=== PATIENT | female | born 2000 ===

== ENCOUNTER 2024-05-19 15:51 | Inpatient (IN) | payer OTHER, SELFPAY ==
[2024-05-19 16:01] VITALS: BP 146/82; PULSE 104; O2SAT 99
--- NOTE | 2024-05-19 16:02 | ED.PSYCH ---
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 Laz Garcia HPI Narrative: 23-year-old female with a history of bipolar disorder takes duloxetine 60 mg once a day, has been compliant with the medications, brought to emergency department on a Section 12. The following was obtained from the Section 12: ?Student has not slept in 3 days, adriana, she reports feeling psychotic, was on campus screaming and threatening others. Diagnosis of bipolar disorder? Patient told me that she has too much stress in the Trauma his building up in his been pouring into her life. She states that over the last 3 days that has been too much and she was had very little asleep. She states that she lives [place] in [place] [facility] 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 She was very tearful while I was interviewing her. She states that she just needs to sleep but does not want any medications at this time to help. She denied suicidal ideation, self-harm or homicidal ideation. Related Data Home Medications ?Medication ?Instructions ?Recorded ?Confirmed duloxetine 60 mg capsule,delayed 60 mg PO DAILY 05/19/24 05/19/24 release Allergies Allergy/AdvReac Type Severity Reaction Status Date / Time No Known Allergies Allergy Verified 05/19/24 16:13 Review of Systems Review of Systems: Yes all other systems are reviewed and are negative REPLACED BY [facility] Past Medical History REPLACED BY [facility] Narrative: Social history: She states she was smoke cigarettes occasionally. She drinks alcohol once or twice a month and when she drinks she will drink 3-4 alcoholic beverages. She smokes marijuana joints daily. Social History Social History Alcohol intake: current Smoked in Last 30 Days: Yes Use of substances other than those prescribed or required for medical reasons: No Advance Directives: No Advance Directives Information Provided: No Patient : No Physical Exam Vital Signs: Vital Signs: Last Vital Signs Temp 98.6 F 05/20/24 06:28 Pulse 123 H 05/20/24 06:28 Resp 20 05/20/24 06:28 BP 150/83 H 05/20/24 06:28 Pulse Ox 100 05/20/24 06:28 O2 Del Method Room Air 05/20/24 06:28 BMI result Body Mass Index 19.4 Exam: General: Awake, alert , patient was crying during the interview, she does not appear to be in distress. Head: Normocephalic, atraumatic EENT: PERRL, Lids normal, sclera normal, conjunctiva normal, nose normal , ears normal, throat without erythema or exudates Neck: Supple, no adenopathy Lung: breath sounds symmetric, no wheezing, rales or rhonchi Chest: symmetric movement, nontender Heart: regular rate and rhythm, normal S1, S2 no murmurs or rubs Abdomen: soft, non-tender, nondistended, normal bowel sounds Back: no vertebral tenderness, no CVAT Extremities: no deformities, moves all extremities symmetrically. Patient has multiple healing linear scars on her left arm consistent with previous self cutting, no new lacerations noted on her left arm Neuro: Awake, alert, oriented, normal speech, cranial nerves intact, moves all extremities symmetrically Psych: Pleasant, cooperative Course Reevaluation(s) Reevaluation #1: 05/20/2024 DR. Rivera's note: Patient will be admitted to [facility], under section 12 a, discontinue physician observation now. Time: 14:49 Medications Administered Generic Name Dose Route Start Last Admin Trade Name Freq PRN Reason Stop Dose Admin Duloxetine HCl 60 mg 05/20/24 09:00 05/20/24 08:38 Duloxetine Hcl 60 Mg Capsule. PO 60 mg DAILY PATITO Administration Nicotine Polacrilex 2 mg 05/20/24 04:18 05/20/24 04:50 Nicotine Polacrilex 2 Mg Gum BUCCAL 2 mg QID PRN Administration Nicotine Cravings Discontinued Medications Generic Name Dose Route Start Last Admin Trade Name Freq PRN Reason Stop Dose Admin Diphenhydramine HCl 50 mg 05/20/24 08:27 05/20/24 08:38 Diphenhydramine Hcl 25 Mg Capsule PO 05/20/24 08:28 50 mg ONCE ONE Administration Lorazepam 1 mg 05/20/24 08:27 05/20/24 08:38 Lorazepam 1 Mg Tablet PO 05/20/24 08:28 1 mg ONCE ONE Administration Medical Decision Making Medical Decision Making MDM Narrative: 23-year-old female with a history of bipolar disorder takes duloxetine 60 mg once a day, has been compliant with the medications, brought to emergency department on a Section 12. The following was obtained from the Section 12 for acute adriana, screaming on campus and threatening others. Patient states she has been under significant stress and that trauma is pouring into her life. She states she was slept very little over the last 3 days. She has been compliant with her psychiatric medications. She denied suicidal, homicidal ideation or self-harm. Physical examination was unremarkable. Patient was tearful but did not want any medications at this time. Differential diagnosis: ?Includes but is not limited to depression, anxiety, polysubstance use disorder, insomnia Course: 19:14 Start physician observation: my interpretation patient's laboratory evaluation is as follows: CBC was normal. CMP was unremarkable except for an elevated bilirubin of 2.0. Urinalysis was negative. Urine test was negative. Ethanol was below detectable limits. Acetaminophen and salicylates were below detectable limits. Urine tox screen was positive for marijuana. Patient was medically cleared for care team evaluation. 02:43 Physician observation continued Patient was seen by the care team. The patient is an adult [facility] bed search. Patient will remain in the emergency department Behavioral Health Unit until disposition can be determined or until patient's symptoms improve over time. At the end of my shift, the patient's care was turned over to my colleague, Dr. Amaya Kilpatrick. Admission/Observation Consideration of admission/observation: Escalation of care including admission/observation considered (Yes) Lab Data MDM Lab Attestation statement: I reviewed the patient's lab results. 05/19/24 17:09 05/19/24 17:09 Labs: Lab Results 05/19/24 05/19/24 05/19/24 Range/Units 16:42 17:09 20:08 WBC 7.8 (4.8-10.8) X10*3/uL RBC 4.56 (4.20-5.50) X10*6/uL Hgb 14.8 (12.0-16.0) g/dl Hct 40.5 (37.0-47.0) % MCV 88.8 (80.0-98.0) fL MCH 32.5 (27.0-33.0) pg MCHC 36.5 H (31.0-35.0) g/dl RDW 12.5 (11.0-16.0) % Plt Count 269 (160-400) X10*3/uL MPV 9.0 L (9.4-12.3) fL Immature Gran % (Auto) 0.3 (0.0-0.4) % Neut % (Auto) 83.2 H (45-73) % Lymph % (Auto) 12.0 L (20-40) % Dillon % (Auto) 4.1 (2-11) % Eos % (Auto) 0.0 (0-4) % Baso % (Auto) 0.4 (0-2) % Lymph # (Auto) 0.9 L (1.2-4.9) X10*3/uL Dillon # (Auto) 0.3 (0.1-1.2) X10*3/uL Eos # (Auto) 0.0 (0.0-0.4) X10*3/uL Baso # (Auto) 0.0 (0.0-0.2) X10*3/uL Abs Immat Gran (auto) 0.02 (0.00-0.03) X10*3/uL Absolute Neuts (auto) 6.5 (2.0-8.3) x10*3/uL Absolute Nucleated RBC 0.000 (0.0-0.012) X10*3/uL Nucleated RBC % (auto) 0.0 (0.0-0.2) /100WBC Sodium 138 (135-145) mmol/L Potassium 4.0 (3.3-5.1) mmol/L Chloride 107 (96-108) mmol/L Carbon Dioxide 22 (22-29) mmol/L Anion Gap 13 (12-20) BUN 5 L (9-16) mg/dL Creatinine 0.65 (0.5-1.4) mg/dL Estim Creat Clear Calc 117.6 Estimated GFR > 60 Random Glucose 84 (60-115) mg/dL Calcium 10.1 (8.4-10.2) mg/dL Total Bilirubin 2.0 H (0.0-1.0) mg/dL AST 20 (5-31) U/L ALT 9 (0-31) U/L Alkaline Phosphatase 54 (39-117) U/L Total Protein 7.7 (6.5-8.0) g/dL Albumin 5.1 H (3.5-5.0) g/dL Urine Color Yellow Urine Appearance Clear Urine pH 6.0 (5.0-9.0) Ur Specific [place] <= 1.005 (1.005-1.025) Urine Protein Negative (Neg-Trace) mg/dL Urine Glucose (UA) Negative (Negative) mg/dL Urine Ketones >=80 (Negative) mg/dL Urine Blood Negative (Negative) Urine Nitrite Negative (Negative) Ur Leukocyte Esterase Negative (Negative) Urine Test NEGATIVE (NEGATIVE) Salicylates < 5.0 L (15-30) mg/dL Urine Opiates Screen Not Detected (Not Detect) Ur Buprenorphine Scrn Not Detected (Not Detect) ng/mL Ur Oxycodone Screen Not Detected (Not Detect) ng/mL Urine Methadone Screen Not Detected (Not Detect) ng/mL Urine Fentanyl Screen Not Detected (Not Detect) Acetaminophen < 3 (<30) mcg/mL Ur Barbiturates Screen Not Detected (Not Detect) Ur Phencyclidine Scrn Not Detected (Not Detect) Ur Amphetamines Screen Not Detected (Not Detect) U Benzodiazepines Scrn Not Detected (Not Detect) Urine Cocaine Screen Not Detected (Not Detect) U Marijuana (THC) Screen POSITIVE H (Not Detect) Ethyl Alcohol < 10 mg/dL COVID-19 (JANUSZ) Negative (Negative) COVID-19 Clin Com See Note Chronic Conditions Patient?s care impacted by: Other (Bipolar disorder) Discharge Plan Discharge Clinical Impression: Adriana, Acute psychosis, Insomnia Patient Disposition: Admitted As Inpatient Interventions: [place]-Suicide Risk Severity Scale Last Done: 05/19/24 16:31
[2024-05-19 16:09] VITALS: BP 144/73; PULSE 103; RESP 16; TEMP 36.8; O2SAT 100; BMI 19.4
[2024-05-19 16:49] LABS: Appearance Urine Clear; Color Urine Yellow; Glucose Urine UA Negative (Negative); Leukocyte Esterase Urine Negative (Negative); Nitrite Urine Negative (Negative); Specific Gravity - Urine <= 1.005 (1.005-1.025); Urine Blood Negative (Negative); Urine Ketones >=80 mg/dL (Negative); Urine Protein Negative (Neg-Trace)
[2024-05-19 16:50] LABS: UPreg QC Valid YES; Urine Pregnancy NEGATIVE (NEGATIVE)
[2024-05-19 17:05] LABS: Amphetamine Screen Urine Not Detected (Not Detect); Barbiturates, Urine Not Detected (Not Detect); Benzodiazepines Screen Urine Not Detected (Not Detect); Buprenorphine Scr Not Detected (Not Detect); Cannabinoid Screen Urine POSITIVE (Not Detect); Cocaine Screen Urine Not Detected (Not Detect); Fentanyl, urine Not Detected (Not Detect); Methadone Screen, Urine Not Detected (Not Detect); Opiate Screen Urine Not Detected (Not Detect); Oxycodone Screen Urine Not Detected (Not Detect); Phencyclidine Screen Urine Not Detected (Not Detect)
[2024-05-19 17:14] LABS: MANUAL DIFF FLAG NO
[2024-05-19 17:24] LABS: Basophils Percent Auto 0.4 % (0-2); Hematocrit 40.5 % (37.0-47.0); Hemoglobin 14.8 g/dl (12.0-16.0); Imm Gran Abs Auto 0.02 X10*3/uL (0.00-0.03); Imm Gran Pct Auto 0.3 % (0.0-0.4); Lymphocytes Absolute Auto 0.9 X10*3/uL (1.2-4.9); Mean Corpuscular HGB Conc 36.5 g/dl (31.0-35.0); Mean Corpuscular Hemoglobin 32.5 pg (27.0-33.0); Mean Corpuscular Volume 88.8 fL (80.0-98.0); Monocytes Absolute Auto 0.3 X10*3/uL (0.1-1.2); Monocytes Percent Auto 4.1 % (2-11); Neutrophils Absolute Auto 6.5 x10*3/uL (2.0-8.3); Neutrophils Percent Auto 83.2 % (45-73); Platelet Count 269 X10*3/uL (160-400); Red Blood Count 4.56 X10*6/uL (4.20-5.50); Red Cell Distribution Width 12.5 % (11.0-16.0); White Blood Count 7.8 X10*3/uL (4.8-10.8)
[2024-05-19 17:30] LABS: Acetaminophen LAB < 3 mcg/mL (<30); Alanine Aminotransferase 9 U/L (0-31); Albumin Level 5.1 g/dL (3.5-5.0); Alkaline Phosphatase 54 U/L (39-117); Anion Gap 13 (12-20); Aspartate Amino Transferase 20 U/L (5-31); Blood Urea Nitrogen 5 mg/dL (9-16); Calcium 10.1 mg/dL (8.4-10.2); Carbon Dioxide 22 mmol/L (22-29); Chloride 107 mmol/L (96-108); Creatinine Clr Calc Pharmacy 117.6; Estimated Glomerular Filt Rate > 60; Ethanol < 10 mg/dL; Glucose Random 84 mg/dL (60-115); Salicylate < 5.0 mg/dL (15-30); Sodium 138 mmol/L (135-145); Total Protein 7.7 g/dL (6.5-8.0)
--- NOTE | 2024-05-19 19:22 | MHC.CARE ---
Patient will be adult [facility] bedsearch.
[2024-05-19 20:36] LABS: COVID-19 Test Negative (Negative); IDNOW Serial# 55D5AD1C
--- NOTE | 2024-05-19 23:40 | PC.NURSE ---
patient appears to remain at rest presently respirations are even and unlabored patient appears in no distress.
[2024-05-20] MEDS: Nicotine Polacrilex 2 MG GUM BUCCAL ×2 (04:50→17:48)
[2024-05-20 06:28] VITALS: BP 150/83; PULSE 123; RESP 20; TEMP 37; O2SAT 100
--- NOTE | 2024-05-20 07:08 | PC.NURSE ---
Care of Pt assumed at change of shift. Pt currently observed eating breakfast quietly.
[2024-05-20] MEDS: LORazepam 1 MG TABLET PO (08:38)
[2024-05-20] MEDS: DULoxetine HCl 60 MG CAPSULE.DR PO (08:38)
[2024-05-20] MEDS: diphenhydrAMINE HCL 25 MG CAPSULE 50 MG PO (08:38)
[2024-05-20 15:33] VITALS: BP 128/75; PULSE 111; RESP 16; TEMP 36.2; O2SAT 96
[2024-05-20 15:39] VITALS: BMI 17.3
--- NOTE | 2024-05-20 17:43 | PC.ADMIT ---
This is the 1st admission for this 23 y.o. woman to this [facility] at [facility]. Referred by [facility] Care Team with Dx of Unspecified Bipolar Disorder. Nurse to nurse done with [facility] ED Pod prior to admission to unit. Arrived on unit on Section 12A at 1515 and placed on 15 min safety checks. Signed CV after meeting with Dr Jacques. Precipitating events to admission: presented to [facility] ED by ambulance on a Section 12 from [facility]. Pt reportedly had not slept in 3 days and reported increase in life stressors. Pt was on campus screaming/threatening others, reported feeling psychotic/manic. Alert and oriented to person, place and time. 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 Paranoia noted. Stated one professor in the math dept wants students to have a medical customer service representative. Stated she started seeing this boring machine operator vertical everywhere and realized she was being followed. States this put her in a loop of not sleeping. Stated, So then they made me crazy, Fuck Them. Disorganization noted, difficulty with staying on topic. Difficulty noted filling out menu, required multiple reminders to complete this task. Becomes distracted easily,looking at nails frequently, changes topic, not answering question asked, asking repeat of question. Rated depression #6 on scale of 1-10(10 worse), after needing direction that question meant today. Stated anxiety was lowest it has been in a long time, unable to rate on scale. Denies SI/HI, denies AH/VH. Reports anorexia from age 14, but has been eating well for last 2 yrs. Reports hx cutting beginning freshman yr at college. Scarring noted right upper thigh. Reports social marijuana use, and drinking 1-2 drinks 1-2x weekly. Declined addictions counseling at present time. Parents currently in [place], mother called unit and updated.
[2024-05-20 19:37] VITALS: BP 150/91; PULSE 118; RESP 16; TEMP 37.3; O2SAT 100
[2024-05-20] MEDS: Lithium Carbonate ER 300 MG TABLET.ER PO (20:42)
[2024-05-20] MEDS: hydrOXYzine HCL 25 MG TABLET PO (20:42)
[2024-05-20] MEDS: traZODone HCL 50 MG TABLET PO (21:30)
[2024-05-20] MEDS: LORazepam 1 MG TABLET 2 MG PO (22:00)
--- NOTE | 2024-05-21 08:11 | P.HPPS_ITS ---
HPI Date of Service: 05/21/24 Chief Complaint: Malou HPI Narrative: per CARE team surjit bradshaw from [facility]. pt reportedly has not slept for 3 days and was acting erratically, yelling at people on campus. she expressed paranoid delusions that her clinical nursing assistant had been following her and also reported AH. per collateral from pt's mother, pt has never presented this way. per [facility] clinician, pt has not been sleeping and has been experiencing AH and presenting with disorganized thoughts. daily cannabis use reported by pt. on interview with MD, pt reported sleeping 0-3 hours nightly for the past 2 weeks. she reported the lithium she started last night had calmed her somewhat, noting a tremor she'd had yesterday has disappeared. she appeared open to the idea she has bipolar disorder and is in a manic episode, yet did not seem willing to directly acknowledge the fact of her Dx. she presented as hyperverbal and with some thought disorder, but otherwise pleasant and receptive to treatment. plan was made to taper cymbalta by 20 mg QOD so as to get off the medication forthwith while also minimizing risk of withdrawal syndrome. Past Psychiatric History: Dx Hx: anorexia, bipolar disorder, undiagnosed PTSD hosps: none prior SA: denies SIB: cutting from 12 yo until about a year ago. outpt: seen at [place] [facility] for therapy, has been getting her psych meds from her PCP back home in [place]. Medical Evaluation Reviewed: Yes [facility] Family History: mother - pt believes her mother has mental illness, doesn't know details. father - reports father has a long h/o depression. younger sister - 16 yo - ADHD, dyslexia, dep/anx. older sister - dep/anx. eating disorder. Social History: from [place]. chandu at [employer] studying math and pre-med. getting Cs and Ds in school these days. has 2 sisters. Substance History: tobacco - daily vaping cannabis - daily alcohol - 1-2 times monthly, 3 or fewer drinks per occasion denies use of other drugs/substances Trauma History: vague story about when she was younger than 12 it was a heavy time in her life. father away a lot, home with mother all the time. unclear what specific events were experienced as traumatic. Diagnostics Vital Signs (24Hr): Vital Signs - 24 hr 05/20/24 15:33 05/20/24 19:37 Temperature 97.2 F 99.1 F Pulse Rate 111 H 118 H Respiratory Rate 16 16 Blood Pressure 128/75 150/91 H Pulse Oximetry 96 100 Oxygen Delivery Method Room Air Room Air BMI result Body Mass Index 17.3 Labs 05/19/24 17:09 05/19/24 17:09 Labs: Laboratory Results - last 48 hr 05/19/24 05/19/24 05/19/24 16:42 17:09 20:08 WBC 7.8 RBC 4.56 Hgb 14.8 Hct 40.5 MCV 88.8 MCH 32.5 MCHC 36.5 H RDW 12.5 Plt Count 269 MPV 9.0 L Immature Gran % (Auto) 0.3 Neut % (Auto) 83.2 H Lymph % (Auto) 12.0 L Emmons % (Auto) 4.1 Eos % (Auto) 0.0 Baso % (Auto) 0.4 Lymph # (Auto) 0.9 L Emmons # (Auto) 0.3 Eos # (Auto) 0.0 Baso # (Auto) 0.0 Abs Immat Gran (auto) 0.02 Absolute Neuts (auto) 6.5 Absolute Nucleated RBC 0.000 Nucleated RBC % (auto) 0.0 Sodium 138 Potassium 4.0 Chloride 107 Carbon Dioxide 22 Anion Gap 13 BUN 5 L Creatinine 0.65 Estim Creat Clear Calc 117.6 Estimated GFR > 60 Random Glucose 84 Calcium 10.1 Total Bilirubin 2.0 H AST 20 ALT 9 Alkaline Phosphatase 54 Total Protein 7.7 Albumin 5.1 H Urine Color Yellow Urine Appearance Clear Urine pH 6.0 Ur Specific [place] <= 1.005 Urine Protein Negative Urine Glucose (UA) Negative Urine Ketones >=80 Urine Blood Negative Urine Nitrite Negative Ur Leukocyte Esterase Negative Urine Test NEGATIVE Salicylates < 5.0 L Urine Opiates Screen Not Detected Ur Buprenorphine Scrn Not Detected Ur Oxycodone Screen Not Detected Urine Methadone Screen Not Detected Urine Fentanyl Screen Not Detected Acetaminophen < 3 Ur Barbiturates Screen Not Detected Ur Phencyclidine Scrn Not Detected Ur Amphetamines Screen Not Detected U Benzodiazepines Scrn Not Detected Urine Cocaine Screen Not Detected U Marijuana (THC) Screen POSITIVE H Ethyl Alcohol < 10 COVID-19 (JANUSZ) Negative COVID-19 Clin Com See Note Meds/Allergies Meds Home Medications ?Medication ?Instructions ?Recorded ?Confirmed ?Type duloxetine 60 mg capsule,delayed 60 mg PO DAILY 05/19/24 05/19/24 History release Allergies Allergies Allergy/AdvReac Type Severity Reaction Status Date / Time No Known Allergies Allergy Verified 05/19/24 16:13 Mental Status Exam Mental Status Exam Narrative: hospital [facility]. disheveled. PMA of excessive truncal movements. speech incr rate and amount. nml loudness, decr latency. thoughts circumstantial. affect full range, hyper-intense, non-labile. mood chillin. denies SI/SIBI/HI/AVH. Assessment & Plan Assessment & Plan (1) Malou: Status: Acute Code(s): F30.9 - Manic episode, unspecified (2) Cannabis use disorder: Status: Acute Code(s): F12.90 - Cannabis use, unspecified, uncomplicated Plan lithium 300 BID, check level friday (ordered). taper cymbalta 20 mg QOD, gently to reduce likelihood of withdrawal syndrome. taper ordered through completion friday. Patient educated on: diagnosis and medication risk/benefits Reason for continued inpatient stay Substantial Risk for: inability to function Statement Statement: I have reviewed the history and physical and performed a pertinent examination on my patient. No changes have occurred unless specified. If the History and Physical was not performed prior to admission, the Hospitalist's service will be consulted for completing the admission physical. Time Spent With Patient Time: Total time managing care of this patient today __75__ minutes.
[2024-05-21] MEDS: Lithium Carbonate ER 300 MG TABLET.ER PO ×2 (08:53→22:15)
[2024-05-21] MEDS: DULoxetine HCl 20 MG CAPSULE.DR 40 MG PO (08:53)
[2024-05-21] MEDS: Nicotine Polacrilex 2 MG GUM BUCCAL ×6 (11:00→21:00)
[2024-05-21 11:11] LABS: Cholesterol 163 mg/dL (<200); HDL Cholesterol 58 mg/dL (>40); LDL Cholesterol Calculated 89 mg/dL (<100); Triglycerides 82 mg/dL (<150)
[2024-05-21 11:22] LABS: Free T4 (Free Thyroxine) 1.24 ng/dL (0.71-1.85); Thyroid Stimulating Hormone 0.49 uIU/mL (0.32-4.0)
[2024-05-21 11:36] LABS: Folate 9.2 ng/mL (> or = 4.0); Vitamin B12 678 pg/mL (200-900)
[2024-05-21 11:47] LABS: Estimated Average Glucose 77 mg/dL; Hemoglobin A1C 92.1448 umol/L; Hemoglobin A1c % 4.3 % (<6.0); Total Hemoglobin (HGBA1C) 3984.9646 umol/L
[2024-05-21 16:09] VITALS: BP 128/79; PULSE 113; RESP 18; TEMP 37.3; O2SAT 99
[2024-05-21 22:12] VITALS: BP 143/88; PULSE 120; RESP 16; TEMP 37.4; O2SAT 99
[2024-05-21] MEDS: LORazepam 1 MG TABLET 2 MG PO (22:15)
[2024-05-22 08:00] VITALS: BP 108/59; PULSE 107; RESP 14; TEMP 36.4; O2SAT 96
[2024-05-22] MEDS: DULoxetine HCl 20 MG CAPSULE.DR 40 MG PO (08:52)
[2024-05-22] MEDS: Nicotine Polacrilex 2 MG GUM BUCCAL ×4 (08:53→23:47)
[2024-05-22] MEDS: Lithium Carbonate ER 300 MG TABLET.ER PO ×2 (08:53→22:16)
--- NOTE | 2024-05-22 09:08 | P.PNPSI_ITS ---
Subjective Subjective Date of Service: 05/22/24 Reason For Visit: Malou Interim History: Attending groups. Reports and shows an area of bilateral redness on dorsal area of both hands near to her thumb. Believes this to be from Lorazepam and asks to stop it and trial low dose Melatonin. Hydrocortizone cream ordered. Team reports lability. Pt appropriate today- with peers, interacting appropriately and making age appropriate alliances. Evangelista ANDERSON,HI,AH,VH. Medication Compliance: Yes Side effects from medications: Yes (? rash dorsal bilateral hands-hx of soap sensitivity as well) Attending Groups: Yes Review of Systems Acute medical concerns: No Review of Systems Review of Systems rash, bilateral dorsal area of hands, by her thumb Mental Status Exam Mental Status Exam Patient Appearance: Appropriate Patient Orientation: Person, Place, Time and Situation Level of Consciousness: Alert Patient Behavior: Talkative and Good Eye Contact Mood Description: Appropriate and Labile Affect Description: Appropriate and Labile Patient Cognition Impaired: No Ability to Follow Directions: Fair Speech Pattern: Spontaneous Speech Judgement: Fair Diagnostics Vital Signs (24Hr): Vital Signs - 24 hr 05/21/24 16:09 05/21/24 22:12 Temperature 99.1 F 99.3 F Pulse Rate 113 H 120 H Respiratory Rate 18 16 Blood Pressure 128/79 143/88 H Pulse Oximetry 99 99 Oxygen Delivery Method Room Air Room Air BMI result Body Mass Index 17.3 Labs 05/19/24 17:09 05/19/24 17:09 Labs: Laboratory Results - last 48 hr 05/21/24 10:38 Estimat Average Glucose 77 Hemoglobin A1c % 4.3 Triglycerides 82 Cholesterol 163 LDL Cholesterol, Calc 89 HDL Cholesterol 58 Vitamin B12 678 Folate 9.2 TSH 0.49 Free T4 1.24 Medications Medications Current Medications Acetaminophen (Acetaminophen 325 Mg Tablet) 650 mg PO Q6H PRN PRN Reason: Headache/Pain, Scale 1-10 Al Hydroxide/Mg Hydroxide (Magnesium Hydrox/Alum Hydrox 30 Ml Oral.Susp) 30 ml PO Q6H PRN PRN Reason: Heartburn/Nausea Duloxetine HCl (Duloxetine Hcl 20 Mg Capsule.Dr) 20 mg PO DAILY PATITO Stop: 05/24/24 09:01 Hydroxyzine HCl (Hydroxyzine Hcl 25 Mg Tablet) 25 mg PO Q6H PRN PRN Reason: mild anxiety Last Admin: 05/20/24 20:42 Dose: 25 mg [employer] Carbonate ([employer] Carbonate Er 300 Mg Tablet.Er) 300 mg PO BID PATITO Last Admin: 05/22/24 08:53 Dose: 300 mg Lorazepam (Lorazepam 1 Mg Tablet) 2 mg PO Q4H PRN PRN Reason: agitation Last Admin: 05/21/24 22:15 Dose: 2 mg Magnesium Hydroxide (Milk Of Magnesia 30 Ml Oral.Susp) 30 ml PO DAILY PRN PRN Reason: Constipation Nicotine Polacrilex (Nicotine Polacrilex 2 Mg Gum) 2 mg BUCCAL Q1H PRN PRN Reason: Nicotine Cravings Last Admin: 05/22/24 08:53 Dose: 2 mg Trazodone HCl (Trazodone Hcl 50 Mg Tablet) 50 mg PO BEDTIME MRX1 PRN PRN Reason: Insomnia Last Admin: 05/20/24 21:30 Dose: 50 mg Allergies Allergies Allergy/AdvReac Type Severity Reaction Status Date / Time No Known Allergies Allergy Verified 05/19/24 16:13 Assessment & Plan Assessment & Plan (1) Malou: Status: Acute Code(s): F30.9 - Manic episode, unspecified (2) Cannabis use disorder: Status: Acute Code(s): F12.90 - Cannabis use, unspecified, uncomplicated Plan lithium 300 BID, check level friday (ordered). taper cymbalta 20 mg QOD, gently to reduce likelihood of withdrawal syndrome. taper ordered through completion friday. DC Lorazepam. Melatonin 3 mg HS prn. Pt believes Lorazepam is causing a rash on her hands. Reason for continued inpatient stay Substantial Risk for: rapid decompensation Time Spent With Patient Time: Total time managing care of this patient today ____ minutes.
[2024-05-22 20:00] VITALS: BP 157/82; PULSE 100; RESP 16; TEMP 37.1; O2SAT 96
[2024-05-23] MEDS: Nicotine Polacrilex 2 MG GUM BUCCAL ×4 (05:31→16:32)
[2024-05-23 08:00] VITALS: BP 131/91; PULSE 110; RESP 14; TEMP 37.1; O2SAT 100
[2024-05-23] MEDS: Lithium Carbonate ER 300 MG TABLET.ER PO ×2 (08:53→20:36)
[2024-05-23] MEDS: DULoxetine HCl 20 MG CAPSULE.DR PO (08:53)
--- NOTE | 2024-05-23 08:57 | HO.PSYCHPN ---
Subjective Subjective Date of Service: 05/23/24 Reason For Visit: Malou Interim History: Today: Seen in room. Was visible on unit. Seclusive to self. Odd affect on approach. Bright, but unpredictable. My mom came today so she can take care of everything now. Phew! Says she was admitted because she hadn't been sleeping well and then had a panic attack in front of a copy center specialist. Reports she is now fine and feels she is ready to be discharged. Mood is level since I got here and slept . Feeling more tired than usual. Dis not sleep well last night, was up and down . When asked about SI, she erratically responds Latif! no actually I'm a depressed ass motherfer but I know how to handle that . AVH? not that I've been aware of or anyone has told me . Friday: Attending groups. Reports and shows an area of bilateral redness on dorsal area of both hands near to her thumb. Believes this to be from Lorazepam and asks to stop it and trial low dose Melatonin. Hydrocortizone cream ordered. Team reports lability. Pt appropriate today- with peers, interacting appropriately and making age appropriate alliances. Evangelista SI,HI,AH,VH. Review of Systems Review of Systems rash, bilateral dorsal area of hands, by her thumb Yes all other systems are reviewed and are negative Mental Status Exam Mental Status Exam Narrative: [facility]. disheveled. PMA of excessive truncal movements. speech incr rate and amount. nml loudness, decr latency. thoughts circumstantial. affect full range, hyper-intense, non-labile. mood chillin. denies SI/SIBI/HI/AVH. Patient Appearance: Appropriate Patient Orientation: Person, Place, Time and Situation Level of Consciousness: Alert Patient Behavior: Talkative and Good Eye Contact Mood Description: Appropriate and Labile Affect Description: Appropriate and Labile Patient Cognition Impaired: No Ability to Follow Directions: Fair Speech Pattern: Spontaneous Speech Diagnostics Vital Signs (24Hr): Vital Signs - 24 hr 05/22/24 20:00 05/23/24 08:00 Temperature 98.7 F 98.7 F Pulse Rate 100 110 H Respiratory Rate 16 14 Blood Pressure 157/82 H 131/91 H Pulse Oximetry 96 100 Oxygen Delivery Method Room Air Room Air BMI result Body Mass Index 17.3 Labs 05/19/24 17:09 05/19/24 17:09 Labs: Laboratory Results - last 48 hr 05/21/24 10:38 Estimat Average Glucose 77 Hemoglobin A1c % 4.3 Triglycerides 82 Cholesterol 163 LDL Cholesterol, Calc 89 HDL Cholesterol 58 Vitamin B12 678 Folate 9.2 TSH 0.49 Free T4 1.24 Medications Medications Current Medications Acetaminophen (Acetaminophen 325 Mg Tablet) 650 mg PO Q6H PRN PRN Reason: Headache/Pain, Scale 1-10 Al Hydroxide/Mg Hydroxide (Magnesium Hydrox/Alum Hydrox 30 Ml Oral.Susp) 30 ml PO Q6H PRN PRN Reason: Heartburn/Nausea Duloxetine HCl (Duloxetine Hcl 20 Mg Capsule.Dr) 20 mg PO DAILY [facility] Stop: 05/24/24 09:01 Last Admin: 05/23/24 08:53 Dose: 20 mg Hydrocortisone (Hydrocortisone 1 % Cream 28.35 Gm Tube) 1 appl TOPICAL BID PRN; Protocol PRN Reason: Rash Hydroxyzine HCl (Hydroxyzine Hcl 25 Mg Tablet) 25 mg PO Q6H PRN PRN Reason: mild anxiety Last Admin: 05/20/24 20:42 Dose: 25 mg [place] Carbonate ([place] Carbonate Er 300 Mg Tablet.Er) 300 mg PO BID PATITO Last Admin: 05/23/24 08:53 Dose: 300 mg Magnesium Hydroxide (Milk Of Magnesia 30 Ml Oral.Susp) 30 ml PO DAILY PRN PRN Reason: Constipation Melatonin (Melatonin 3 Mg Tablet) 3 mg PO BEDTIME PRN PRN Reason: Insomnia Nicotine Polacrilex (Nicotine Polacrilex 2 Mg Gum) 2 mg BUCCAL Q1H PRN PRN Reason: Nicotine Cravings Last Admin: 05/23/24 08:53 Dose: 2 mg Trazodone HCl (Trazodone Hcl 50 Mg Tablet) 50 mg PO BEDTIME MRX1 PRN PRN Reason: Insomnia Last Admin: 05/20/24 21:30 Dose: 50 mg Allergies Allergies Allergy/AdvReac Type Severity Reaction Status Date / Time No Known Allergies Allergy Verified 05/19/24 16:13 Assessment & Plan Assessment & Plan (1) Malou: Status: Acute Code(s): F30.9 - Manic episode, unspecified (2) Cannabis use disorder: Status: Acute Code(s): F12.90 - Cannabis use, unspecified, uncomplicated Plan lithium 300 BID, check level friday (ordered). taper cymbalta 20 mg QOD, gently to reduce likelihood of withdrawal syndrome. taper ordered through completion friday. DC Lorazepam. Melatonin 3 mg HS prn. Pt believes Lorazepam is causing a rash on her hands. 05/23/24: Quietly labile, unpredictable. Superifically cooperative. Guarded, poor insight. No behavioral issues noted. Med compliant. No complaints. Advocating for discharge. Patient educated on: diagnosis and medication risk/benefits Informed Consent: understands Reason for continued inpatient stay Substantial Risk for: med/psych decompensation Time Spent With Patient Time: Total time managing care of this patient today ____ minutes.
[2024-05-23 20:00] VITALS: BP 115/75; PULSE 80; RESP 14; TEMP 37.2; O2SAT 100
[2024-05-23] MEDS: Melatonin 3 MG TABLET PO (20:37)
[2024-05-24] MEDS: Nicotine Polacrilex 2 MG GUM BUCCAL ×2 (03:12→16:07)
[2024-05-24 07:50] VITALS: BP 127/82; PULSE 76; RESP 14; TEMP 36.8; O2SAT 100
[2024-05-24] MEDS: Lithium Carbonate ER 300 MG TABLET.ER PO (08:33)
[2024-05-24] MEDS: DULoxetine HCl 20 MG CAPSULE.DR PO (08:33)
[2024-05-24 08:44] LABS: Anion Gap 11 (12-20); Blood Urea Nitrogen 7 mg/dL (9-16); Calcium 10.2 mg/dL (8.4-10.2); Carbon Dioxide 27 mmol/L (22-29); Chloride 106 mmol/L (96-108); Creatinine Clr Calc Pharmacy 96.2; Estimated Glomerular Filt Rate > 60; Glucose Random 78 mg/dL (60-115); Potassium 4.1 mmol/L (3.3-5.1); Sodium 140 mmol/L (135-145)
[2024-05-24] MEDS: Lithium Carbonate 300 MG TABLET 150 MG PO (14:07)
--- NOTE | 2024-05-24 15:20 | P.PNPSI_ITS ---
Subjective Subjective Date of Service: 05/24/24 Reason For Visit: Malou Interim History: seen alone and also with mother for family mtg. pt disappointed to hear she will have to stay until late in the week. labs reviewed. increase lithium to 450 mg BID. per staff, overly bright. slept 6 hours. Mental Status Exam Mental Status Exam Narrative: [facility]. disheveled. PMA of excessive truncal movements. speech incr rate and amount. nml loudness, decr latency. thoughts linear and logical. affect full range, hyper-intense, mod-labile. mood more calm. no SI/SIBI/HI/AVH expressed. Diagnostics Vital Signs (24Hr): Vital Signs - 24 hr 05/23/24 20:00 05/24/24 07:50 Temperature 99.0 F 98.2 F Pulse Rate 80 76 Respiratory Rate 14 14 Blood Pressure 115/75 127/82 Pulse Oximetry 100 100 Oxygen Delivery Method Room Air Room Air BMI result Body Mass Index 17.3 Labs 05/19/24 17:09 05/24/24 07:53 Labs: Laboratory Results - last 48 hr 05/24/24 07:53 Sodium 140 Potassium 4.1 Chloride 106 Carbon Dioxide 27 Anion Gap 11 L BUN 7 L Creatinine 0.71 Estim Creat Clear Calc 96.2 Estimated GFR > 60 Random Glucose 78 Calcium 10.2 [place] 0.40 L Medications Medications Current Medications Acetaminophen (Acetaminophen 325 Mg Tablet) 650 mg PO Q6H PRN PRN Reason: Headache/Pain, Scale 1-10 Al Hydroxide/Mg Hydroxide (Magnesium Hydrox/Alum Hydrox 30 Ml Oral.Susp) 30 ml PO Q6H PRN PRN Reason: Heartburn/Nausea Hydrocortisone (Hydrocortisone 1 % Cream 28.35 Gm Tube) 1 appl TOPICAL BID PATITO; Protocol Last Admin: 05/24/24 14:09 Dose: Not Given Hydroxyzine HCl (Hydroxyzine Hcl 25 Mg Tablet) 25 mg PO Q6H PRN PRN Reason: mild anxiety Last Admin: 05/20/24 20:42 Dose: 25 mg [place] Carbonate ([place] Carbonate Er 450 Mg Tablet.Er) 450 mg PO BID PATITO Magnesium Hydroxide (Milk Of Magnesia 30 Ml Oral.Susp) 30 ml PO DAILY PRN PRN Reason: Constipation Melatonin (Melatonin 3 Mg Tablet) 3 mg PO BEDTIME PRN PRN Reason: Insomnia Last Admin: 05/23/24 20:37 Dose: 3 mg Nicotine Polacrilex (Nicotine Polacrilex 2 Mg Gum) 2 mg BUCCAL Q1H PRN PRN Reason: Nicotine Cravings Last Admin: 05/24/24 03:12 Dose: 2 mg Trazodone HCl (Trazodone Hcl 50 Mg Tablet) 50 mg PO BEDTIME MRX1 PRN PRN Reason: Insomnia Last Admin: 05/20/24 21:30 Dose: 50 mg Allergies Allergies Allergy/AdvReac Type Severity Reaction Status Date / Time No Known Allergies Allergy Verified 05/19/24 16:13 Assessment & Plan Assessment & Plan (1) Malou: Status: Acute Code(s): F30.9 - Manic episode, unspecified (2) Cannabis use disorder: Status: Acute Code(s): F12.90 - Cannabis use, unspecified, uncomplicated Plan 05/21: lithium 300 BID, check level friday (ordered). taper cymbalta 20 mg QOD, gently to reduce likelihood of withdrawal syndrome. taper ordered through completion friday. 05/22: DC Lorazepam. Melatonin 3 mg HS prn. Pt believes Lorazepam is causing a rash on her hands. 05/23: Quietly labile, unpredictable. Superfically cooperative. Guarded, poor insight. No behavioral issues noted. Med compliant. No complaints. Advocating for discharge. 05/24: improved, continues to have poor insight into her illness, does not want to accept diagnosis, it appears. blaming hospitalization on a particular security police. mother present, appears to have convinced pt to comply with increased dosing of lithium and to stay in the hospital as recommended. lithium level 0.40 on 300 BID, increase dosing to 450 BID as of today. BMP reassuring. Reason for continued inpatient stay Substantial Risk for: inability to function and rapid decompensation Time Spent With Patient Time: Total time managing care of this patient today __45__ minutes.
[2024-05-24 19:50] VITALS: BP 137/85; PULSE 85; RESP 16; TEMP 36.9; O2SAT 100
[2024-05-24] MEDS: Lithium Carbonate ER 450 MG TABLET.ER PO (21:27)
[2024-05-24] MEDS: Melatonin 3 MG TABLET PO (21:27)
[2024-05-24] MEDS: Hydrocortisone 1 % Cream 28.35 GM TUBE 1 APPL TOPICAL (21:29)
[2024-05-25 07:55] VITALS: BP 96/52; PULSE 67; RESP 16; TEMP 37.2; O2SAT 100
[2024-05-25] MEDS: Lithium Carbonate ER 450 MG TABLET.ER PO ×2 (08:48→21:41)
[2024-05-25] MEDS: Nicotine Polacrilex 2 MG GUM BUCCAL ×3 (08:51→19:57)
--- NOTE | 2024-05-25 15:07 | HO.PSYCHPN ---
Subjective Subjective Date of Service: 05/25/24 Reason For Visit: Malou Interim History: attempted to meet with pt x2, initially pt stated she wished to say goodbye to discharging peer first. MD returned 10 minutes later and hailed pt again, she declined again. she was seated at table with said peer at the time. per staff, reactive, paranoid re doctor. restless, pacing. initially refusing lithium, then took with mother's encouragement. irritable eves. c/o dose of lithium being too high for her weight, citing [place]. slept about 4 hours. Mental Status Exam Mental Status Exam Narrative: [facility]. disheveled. PMA of excessive truncal movements. speech incr rate. nml loudness, decr latency. thoughts linear and logical. affect full range, hyper-intense, mod-labile. mood not assessed. no SI/SIBI/HI/AVH expressed. Diagnostics Vital Signs (24Hr): Vital Signs - 24 hr 05/24/24 19:50 05/25/24 07:55 Temperature 98.4 F 98.9 F Pulse Rate 85 67 Respiratory Rate 16 16 Blood Pressure 137/85 96/52 L Pulse Oximetry 100 100 Oxygen Delivery Method Room Air Room Air BMI result Body Mass Index 17.3 Labs 05/19/24 17:09 05/24/24 07:53 Labs: Laboratory Results - last 48 hr 05/24/24 07:53 Sodium 140 Potassium 4.1 Chloride 106 Carbon Dioxide 27 Anion Gap 11 L BUN 7 L Creatinine 0.71 Estim Creat Clear Calc 96.2 Estimated GFR > 60 Random Glucose 78 Calcium 10.2 [place] 0.40 L Medications Medications Current Medications Acetaminophen (Acetaminophen 325 Mg Tablet) 650 mg PO Q6H PRN PRN Reason: Headache/Pain, Scale 1-10 Al Hydroxide/Mg Hydroxide (Magnesium Hydrox/Alum Hydrox 30 Ml Oral.Susp) 30 ml PO Q6H PRN PRN Reason: Heartburn/Nausea Hydrocortisone (Hydrocortisone 1 % Cream 28.35 Gm Tube) 1 appl TOPICAL BID PRN; Protocol PRN Reason: Rash Hydroxyzine HCl (Hydroxyzine Hcl 25 Mg Tablet) 25 mg PO Q6H PRN PRN Reason: mild anxiety Last Admin: 05/20/24 20:42 Dose: 25 mg [place] Carbonate ([place] Carbonate Er 450 Mg Tablet.Er) 450 mg PO BID PATITO Last Admin: 05/25/24 08:48 Dose: 450 mg Magnesium Hydroxide (Milk Of Magnesia 30 Ml Oral.Susp) 30 ml PO DAILY PRN PRN Reason: Constipation Melatonin (Melatonin 3 Mg Tablet) 3 mg PO BEDTIME PRN PRN Reason: Insomnia Last Admin: 05/24/24 21:27 Dose: 3 mg Nicotine Polacrilex (Nicotine Polacrilex 2 Mg Gum) 2 mg BUCCAL Q1H PRN PRN Reason: Nicotine Cravings Last Admin: 05/25/24 14:25 Dose: 2 mg Trazodone HCl (Trazodone Hcl 50 Mg Tablet) 50 mg PO BEDTIME MRX1 PRN PRN Reason: Insomnia Last Admin: 05/20/24 21:30 Dose: 50 mg Allergies Allergies Allergy/AdvReac Type Severity Reaction Status Date / Time No Known Allergies Allergy Verified 05/19/24 16:13 Assessment & Plan Assessment & Plan (1) Malou: Status: Acute Code(s): F30.9 - Manic episode, unspecified (2) Cannabis use disorder: Status: Acute Code(s): F12.90 - Cannabis use, unspecified, uncomplicated Plan 05/21: lithium 300 BID, check level friday (ordered). taper cymbalta 20 mg QOD, gently to reduce likelihood of withdrawal syndrome. taper ordered through completion friday. 05/22: DC Lorazepam. Melatonin 3 mg HS prn. Pt believes Lorazepam is causing a rash on her hands. 05/23: Quietly labile, unpredictable. Superfically cooperative. Guarded, poor insight. No behavioral issues noted. Med compliant. No complaints. Advocating for discharge. 05/24: improved, continues to have poor insight into her illness, does not want to accept diagnosis, it appears. blaming hospitalization on a particular juvenile probation officer. mother present, appears to have convinced pt to comply with increased dosing of lithium and to stay in the hospital as recommended. lithium level 0.40 on 300 BID, increase dosing to 450 BID as of today. BMP reassuring. 05/25: declines to meet with MD. described by staff as paranoid re MD, as well as being reactive, restless, irritable. slept only 4 hours. continue current mgmt. Reason for continued inpatient stay Substantial Risk for: inability to function Time Spent With Patient Time: Total time managing care of this patient today __25__ minutes.
[2024-05-25 20:00] VITALS: BP 128/78; PULSE 72; RESP 16; TEMP 37.2; O2SAT 100
[2024-05-26] MEDS: Melatonin 3 MG TABLET PO (00:26)
[2024-05-26] MEDS: Nicotine Polacrilex 2 MG GUM BUCCAL ×3 (00:29→20:33)
[2024-05-26 07:43] VITALS: BP 106/54; PULSE 72; RESP 16; TEMP 37.4; O2SAT 100
[2024-05-26] MEDS: Lithium Carbonate ER 450 MG TABLET.ER PO ×2 (08:25→20:30)
--- NOTE | 2024-05-26 11:46 | P.PNPSI_ITS ---
Subjective Subjective Date of Service: 05/26/24 Reason For Visit: Malou Interim History: pleasant, cooperative. notes she is less angry all the time in the past couple of days, which she appreciates. also slept better last night. planning for labs recheck friday and tentative plan to discharge friday. per staff, taking meds. irritable with mother and staff. i don't really like the doctor. slept about 6 hours. Mental Status Exam Mental Status Exam Narrative: [facility]. disheveled. PMA of excessive truncal movements. speech incr rate. nml loudness, decr latency. thoughts linear and logical, but digressive and over-inclusive of detail. affect full range, hyper-intense, mod-labile. mood less angry all the time. no SI/SIBI/HI/AVH expressed. Diagnostics Vital Signs (24Hr): Vital Signs - 24 hr 05/25/24 20:00 05/26/24 07:43 Temperature 99 F 99.4 F Pulse Rate 72 72 Respiratory Rate 16 16 Blood Pressure 128/78 106/54 L Pulse Oximetry 100 100 Oxygen Delivery Method Room Air Room Air BMI result Body Mass Index 17.3 Labs 05/19/24 17:09 05/24/24 07:53 Medications Medications Current Medications Acetaminophen (Acetaminophen 325 Mg Tablet) 650 mg PO Q6H PRN PRN Reason: Headache/Pain, Scale 1-10 Al Hydroxide/Mg Hydroxide (Magnesium Hydrox/Alum Hydrox 30 Ml Oral.Susp) 30 ml PO Q6H PRN PRN Reason: Heartburn/Nausea Hydrocortisone (Hydrocortisone 1 % Cream 28.35 Gm Tube) 1 appl TOPICAL BID PRN; Protocol PRN Reason: Rash Hydroxyzine HCl (Hydroxyzine Hcl 25 Mg Tablet) 25 mg PO Q6H PRN PRN Reason: mild anxiety Last Admin: 05/20/24 20:42 Dose: 25 mg [place] Carbonate ([place] Carbonate Er 450 Mg Tablet.Er) 450 mg PO BID PATITO Last Admin: 05/26/24 08:25 Dose: 450 mg Magnesium Hydroxide (Milk Of Magnesia 30 Ml Oral.Susp) 30 ml PO DAILY PRN PRN Reason: Constipation Melatonin (Melatonin 3 Mg Tablet) 3 mg PO BEDTIME PRN PRN Reason: Insomnia Last Admin: 05/26/24 00:26 Dose: 3 mg Nicotine Polacrilex (Nicotine Polacrilex 2 Mg Gum) 2 mg BUCCAL Q1H PRN PRN Reason: Nicotine Cravings Last Admin: 05/26/24 00:29 Dose: 2 mg Trazodone HCl (Trazodone Hcl 50 Mg Tablet) 50 mg PO BEDTIME MRX1 PRN PRN Reason: Insomnia Last Admin: 05/20/24 21:30 Dose: 50 mg Allergies Allergies Allergy/AdvReac Type Severity Reaction Status Date / Time No Known Allergies Allergy Verified 05/19/24 16:13 Assessment & Plan Assessment & Plan (1) Malou: Status: Acute Code(s): F30.9 - Manic episode, unspecified (2) Cannabis use disorder: Status: Acute Code(s): F12.90 - Cannabis use, unspecified, uncomplicated Plan 05/21: lithium 300 BID, check level friday (ordered). taper cymbalta 20 mg QOD, gently to reduce likelihood of withdrawal syndrome. taper ordered through completion friday. 05/22: DC Lorazepam. Melatonin 3 mg HS prn. Pt believes Lorazepam is causing a rash on her hands. 05/23: Quietly labile, unpredictable. Superfically cooperative. Guarded, poor insight. No behavioral issues noted. Med compliant. No complaints. Advocating for discharge. 05/24: improved, continues to have poor insight into her illness, does not want to accept diagnosis, it appears. blaming hospitalization on a particular mounted police officer. mother present, appears to have convinced pt to comply with increased dosing of lithium and to stay in the hospital as recommended. lithium level 0.40 on 300 BID, increase dosing to 450 BID as of today. BMP reassuring. 05/25: declines to meet with MD. described by staff as paranoid re MD, as well as being reactive, restless, irritable. slept only 4 hours. continue current mgmt. 05/26: less angry, slept better last night. 6 hours. check lithium friday, tentative plan to DC friday. Reason for continued inpatient stay Substantial Risk for: inability to function and rapid decompensation Time Spent With Patient Time: Total time managing care of this patient today __25__ minutes.
[2024-05-26 20:00] VITALS: BP 118/56; PULSE 64; RESP 16; TEMP 36.9; O2SAT 99
[2024-05-27 07:00] VITALS: BMI 17.4
[2024-05-27 07:38] VITALS: BP 108/52; PULSE 71; RESP 18; TEMP 37.4; O2SAT 99
[2024-05-27] MEDS: Lithium Carbonate ER 450 MG TABLET.ER PO ×2 (08:57→21:25)
--- NOTE | 2024-05-27 14:26 | P.PNPSI_ITS ---
Subjective Subjective Date of Service: 05/27/24 Reason For Visit: Malou Interim History: sleeping well, mood pretty normal. hyper-intense, elevated affect - perhaps not entirely appropriate laughter, minimizing events, discussing discharge planning. currently planning to discharge tomorrow if lithium level therapeutic and renal fxn reassuring. vague plans for aftercare. per staff, pt noted to have said, i actually feel more myself. mother and BF can tell the difference. Mental Status Exam Mental Status Exam Narrative: own attire. disheveled. PMA of excessive truncal movements. speech incr rate, incr loudness, decr latency. thoughts linear and logical, but digressive and over-inclusive of detail. affect full range, hyper-intense, mod-labile. mood pretty normal. no SI/SIBI/HI/AVH expressed. Diagnostics Vital Signs (24Hr): Vital Signs - 24 hr 05/26/24 20:00 05/27/24 07:38 Temperature 98.4 F 99.3 F Pulse Rate 64 71 Respiratory Rate 16 18 Blood Pressure 118/56 L 108/52 L Pulse Oximetry 99 99 Oxygen Delivery Method Room Air Room Air BMI result Body Mass Index 17.4 Labs 05/19/24 17:09 05/24/24 07:53 Medications Medications Current Medications Acetaminophen (Acetaminophen 325 Mg Tablet) 650 mg PO Q6H PRN PRN Reason: Headache/Pain, Scale 1-10 Al Hydroxide/Mg Hydroxide (Magnesium Hydrox/Alum Hydrox 30 Ml Oral.Susp) 30 ml PO Q6H PRN PRN Reason: Heartburn/Nausea Hydrocortisone (Hydrocortisone 1 % Cream 28.35 Gm Tube) 1 appl TOPICAL BID PRN; Protocol PRN Reason: Rash Hydroxyzine HCl (Hydroxyzine Hcl 25 Mg Tablet) 25 mg PO Q6H PRN PRN Reason: mild anxiety Last Admin: 05/20/24 20:42 Dose: 25 mg [place] Carbonate ([place] Carbonate Er 450 Mg Tablet.Er) 450 mg PO BID PATITO Last Admin: 05/27/24 08:57 Dose: 450 mg Magnesium Hydroxide (Milk Of Magnesia 30 Ml Oral.Susp) 30 ml PO DAILY PRN PRN Reason: Constipation Melatonin (Melatonin 3 Mg Tablet) 3 mg PO BEDTIME PRN PRN Reason: Insomnia Last Admin: 05/26/24 00:26 Dose: 3 mg Nicotine Polacrilex (Nicotine Polacrilex 2 Mg Gum) 2 mg BUCCAL Q1H PRN PRN Reason: Nicotine Cravings Last Admin: 05/26/24 20:33 Dose: 2 mg Trazodone HCl (Trazodone Hcl 50 Mg Tablet) 50 mg PO BEDTIME MRX1 PRN PRN Reason: Insomnia Last Admin: 05/20/24 21:30 Dose: 50 mg Allergies Allergies Allergy/AdvReac Type Severity Reaction Status Date / Time No Known Allergies Allergy Verified 05/19/24 16:13 Assessment & Plan Assessment & Plan (1) Malou: Status: Acute Code(s): F30.9 - Manic episode, unspecified (2) Cannabis use disorder: Status: Acute Code(s): F12.90 - Cannabis use, unspecified, uncomplicated Plan 05/21: lithium 300 BID, check level friday (ordered). taper cymbalta 20 mg QOD, gently to reduce likelihood of withdrawal syndrome. taper ordered through completion friday. 05/22: DC Lorazepam. Melatonin 3 mg HS prn. Pt believes Lorazepam is causing a rash on her hands. 05/23: Quietly labile, unpredictable. Superfically cooperative. Guarded, poor insight. No behavioral issues noted. Med compliant. No complaints. Advocating for discharge. 05/24: improved, continues to have poor insight into her illness, does not want to accept diagnosis, it appears. blaming hospitalization on a particular booking police officer. mother present, appears to have convinced pt to comply with increased dosing of lithium and to stay in the hospital as recommended. lithium level 0.40 on 300 BID, increase dosing to 450 BID as of today. BMP reassuring. 05/25: declines to meet with MD. described by staff as paranoid re MD, as well as being reactive, restless, irritable. slept only 4 hours. continue current mgmt. 05/26: less angry, slept better last night. 6 hours. check lithium friday, tentative plan to DC friday. 05/27: per pt, both her mother and BF have noticed a difference in her for the good, she feels more [her]self. remains with elevated affect and impaired insight into the severity of her illness. lithium level tomorrow morning, planning for discharge after. Reason for continued inpatient stay Substantial Risk for: inability to function and rapid decompensation Time Spent With Patient Time: Total time managing care of this patient today __25__ minutes.
[2024-05-27 19:00] VITALS: BP 110/66; PULSE 66; RESP 14; TEMP 36.8; O2SAT 100
[2024-05-27] MEDS: Nicotine Polacrilex 2 MG GUM BUCCAL (19:01)
[2024-05-27] MEDS: Melatonin 3 MG TABLET PO (21:25)
[2024-05-28 07:15] VITALS: BP 92/54; PULSE 68; RESP 16; TEMP 37.3; O2SAT 100
[2024-05-28] MEDS: Lithium Carbonate ER 450 MG TABLET.ER PO (08:40)
[2024-05-28 08:43] LABS: Lithium 0.67 mmol/L (0.60-1.20)
[2024-05-28 08:47] LABS: Anion Gap 8 (12-20); Blood Urea Nitrogen 8 mg/dL (9-16); Calcium 9.8 mg/dL (8.4-10.2); Carbon Dioxide 26 mmol/L (22-29); Chloride 110 mmol/L (96-108); Creatinine Clr Calc Pharmacy 107.6; Estimated Glomerular Filt Rate > 60; Glucose Random 75 mg/dL (60-115); Potassium 4.3 mmol/L (3.3-5.1); Sodium 140 mmol/L (135-145)
--- NOTE | 2024-05-28 10:07 | PM.PSYDC ---
DS: Providers Provider Date of Service: 05/28/24 Date of admission: 05/20/24 14:27 Date of discharge: 05/28/24 Primary care physician: Unknown Physician DS: Diagnosis Discharge Diagnosis (1) Malou: Status: Acute (2) Cannabis use disorder: Status: Acute DS: Medications Discharge Medications Home Medications: Previous Rx's ?Medication ?Instructions ?Recorded hydrocortisone 1 % topical cream 1 appl topical BID PRN Rash 30 05/28/24 days #28.35 grams lithium carbonate 450 mg 450 mg PO BID 30 days #60 tabs 05/28/24 tablet,extended release melatonin 3 mg tablet 3 mg PO BEDTIME PRN Insomnia 30 05/28/24 days #30 tabs Mental Status Exam Mental Status Exam Narrative: own attire. disheveled. less PMA of excessive truncal movements. speech incr rate, incr loudness, decr latency. thoughts linear and logical, but digressive and over-inclusive of detail. affect full range, hyper-intense, non-labile. mood excited. no SI/SIBI/HI/AVH. Data Data Completed and Pending Completed studies during hospitalization [Text1]: 05/21/24 05/24/24 05/28/24 10:38 07:53 07:50 Sodium 140 140 Potassium 4.1 4.3 Chloride 106 110 H Carbon Dioxide 27 26 Anion Gap 11 L 8 L BUN 7 L 8 L Creatinine 0.71 0.64 Estim Creat Clear Calc 96.2 107.6 Estimated GFR > 60 > 60 Random Glucose 78 75 Estimat Average Glucose 77 Hemoglobin A1c % 4.3 Calcium 10.2 9.8 Triglycerides 82 Cholesterol 163 LDL Cholesterol, Calc 89 HDL Cholesterol 58 Vitamin B12 678 Folate 9.2 TSH 0.[address] [facility] 0.40 L 0.67 DS: Summary Hospital Course Hospital Course: per 05/21 admission note: HPI Narrative: per CARE team surjit bradshaw from [facility]. pt reportedly has not slept for 3 days and was acting erratically, yelling at people on campus. she expressed paranoid delusions that her slat basket maker machine had been following her and also reported AH. per collateral from pt's mother, pt has never presented this way. per [facility] clinician, pt has not been sleeping and has been experiencing AH and presenting with disorganized thoughts. daily cannabis use reported by pt. on interview with MD, pt reported sleeping 0-3 hours nightly for the past 2 weeks. she reported the lithium she started last night had calmed her somewhat, noting a tremor she'd had yesterday has disappeared. she appeared open to the idea she has bipolar disorder and is in a manic episode, yet did not seem willing to directly acknowledge the fact of her Dx. she presented as hyperverbal and with some thought disorder, but otherwise pleasant and receptive to treatment. plan was made to taper cymbalta by 20 mg QOD so as to get off the medication forthwith while also minimizing risk of withdrawal syndrome. Past Psychiatric History: Dx Hx: anorexia, bipolar disorder, undiagnosed PTSD hosps: none prior SA: denies SIB: cutting from 12 yo until about a year ago. outpt: seen at [facility] for [facility], has been getting her psych meds from her PCP back home in [place]. Medical Evaluation Reviewed: Yes PMF Family History: mother - pt believes her mother has mental illness, doesn't know details. father - reports father has a long h/o depression. younger sister - 16 yo - ADHD, dyslexia, dep/anx. older sister - dep/anx. eating disorder. Social History: from [place]. [place] at [employer] studying math and pre-med. getting Cs and Ds in school these days. has 2 sisters. Substance History: tobacco - daily vaping cannabis - daily alcohol - 1-2 times monthly, 3 or fewer drinks per occasion denies use of other drugs/substances Trauma History: vague story about when she was younger than 12 it was a heavy time in her life. father away a lot, home with mother all the time. unclear what specific events were experienced as traumatic. Precis: 05/21: lithium 300 BID, check level friday (ordered). taper cymbalta 20 mg QOD, gently to reduce likelihood of withdrawal syndrome. taper ordered through completion friday. 05/22: DC Lorazepam. Melatonin 3 mg HS prn. Pt believes Lorazepam is causing a rash on her hands. 05/23: Quietly labile, unpredictable. Superfically cooperative. Guarded, poor insight. No behavioral issues noted. Med compliant. No complaints. Advocating for discharge. 05/24: improved, continues to have poor insight into her illness, does not want to accept diagnosis, it appears. blaming hospitalization on a particular [employer]. mother present, appears to have convinced pt to comply with increased dosing of lithium and to stay in the hospital as recommended. lithium level 0.40 on 300 BID, increase dosing to 450 BID as of today. BMP reassuring. 05/25: declines to meet with MD. described by staff as paranoid re MD, as well as being reactive, restless, irritable. slept only 4 hours. continue current mgmt. 05/26: less angry, slept better last night. 6 hours. check lithium friday morning, tentative plan to DC friday. 05/27: per pt, both her mother and BF have noticed a difference in her for the good, she feels more [her]self. remains with elevated affect and impaired insight into the severity of her illness. lithium level tomorrow morning, planning for discharge after. 05/28: lithium 0.67, BMP reassuring. remains improved, denies safety issues. meds reviewed, reconciled, prescribed. pt discharged as per plan. Time Spent with Patient Time attestation: Total time managing care of this patient today __35__ minutes. Discharge Plan Discharge Anticipated Discharge Date/Time: 05/28/24 11:00 Patient Disposition: Home, Self-Care Discharge Diagnosis: Bipolar I Disorder, MRE Manic Referrals: Therapy & Psychiatry [Other] - 1 Week (*You can present to the clinic above, Friday through Friday during the hours of 8am and 8pm, in order to obtain outpatient mental health providers. *Please bring a photo ID and insurance card with you. ) Therapy & Psychiatry [Other] - 1 Week (You can present to the clinic above, Friday through Friday during the hours of 10am and 12pm, in order to obtain outpatient mental health providers. ) Therapy & Psychiatry [Other] - 1 Week (*You can present as a walk in to the clinic above in order to obtain outpatient mental health providers. You will be seen the same day. ) [facility] [Provider Group] - 1 Week (05-27-24 [facility] was added to patients chart. Please call [phone] to schedule a follow up appt within 7-10 days of discharge. No release or PCP on file.) Discharge Medications: New melatonin 3 mg Tablet 3 mg PO BEDTIME PRN (Reason: Insomnia) 30 Days Qty: 30 0RF lithium carbonate 450 mg Tablet Extended Release 450 mg PO BID 30 Days Qty: 60 0RF hydrocortisone 1 % Cream 1 appl topical BID PRN (Reason: Rash) 30 Days Qty: 28.35 0RF Protocol: Apply to: Apply to: bilateral hands, dorsal side Discontinued duloxetine 60 mg Capsule,Delayed Release(Dr/Ec) 60 mg PO DAILY Discharge Orders: Discharge Order (Routine); Ordered 05/28/24 Ordered By: Sánchez Jacques Diet: Advance to usual diet Activity on Discharge: As tolerated Stand Alone Forms: Patient Portal Discharge page, Community Support Print Language: Urdu Care Plan Goals: remain safe and stable in the outpatient treatment setting Health Concerns: none Plan of Treatment: take medications as prescribed, establish outpatient care within the next month Assessment: not at imminent risk of harm to self or others Discharge Date/Time: 05/28/24 10:39
== END 2024-05-28 10:39 | disposition home or self-care (01) | DRG 885 ==
LOC: HO.ED 21:28 → HO.PADLT16 05-20 14:28
PROVIDERS: Admitting Provider Psychiatry & Neurology Psychiatry; Emergency Provider Emergency Medicine Emergency Medical Services; Visit Provider Psychiatry & Neurology Psychiatry
DX: F30.9 Manic episode, unspecified (principal); F17.210 Nicotine dependence, cigarettes, uncomplicated; Z71.6 Tobacco abuse counseling; F12.90 Cannabis use, unspecified, uncomplicated; Z20.822 Contact with and (suspected) exposure to COVID-19
CPT/HCPCS: 36415; 80048; 80053; 80061; 80143; 80178; 80179; 80307; 81003; 81025; 82607; 82746; 83036; 84439; 84443; 85025; 87635; 99285; S9485

== ENCOUNTER → 2024-05-20 14:27 | Outpatient (BNV) | payer OTHER, SELFPAY | PROVIDERS: Admitting Provider Psychiatry & Neurology Psychiatry; Emergency Provider Emergency Medicine Emergency Medical Services; Visit Provider Psychiatry & Neurology Psychiatry | DX: F30.9 Manic episode, unspecified (principal); F12.90 Cannabis use, unspecified, uncomplicated | CPT/HCPCS: 90792; 99231; 99232; 99239 ==